=== PATIENT | female | born 1970 | race Caucasian/White ===

== ENCOUNTER 2021-01-26 17:59 | Emergency (ER) | payer OTHER ==
[~2021-01-26] VITALS: Ht 167.6 cm; Wt 86.0 kg
[2021-01-26 18:00] VITALS: BP 150/87
--- NOTE | 2021-01-26 18:35 | PHYS DOC ---
Past History Past Medical History: Depression Past Surgical History: Other Alcohol Use: None Adult General Chief Complaint Chief Complaint: POST-OP PROBLEM HPI HPI Patient is a 50-year-old female who presents with left lower extremity bruising. States that she had laparoscopic knee surgery last week to remove a Soria's cyst. States she noticed some bruising on the inner portion of her lower leg over the last couple of days. Denies any recent travel, other traumas, other surgeries, cigarette smoking, control use, pain. Denies any swelling of the lower extremity. Review of Systems Review of Systems Review of systems otherwise unremarkable except noted in HPI Allergies Allergies Allergies Coded Allergies Type Severity Reaction Last Updated Verified Penicillins Allergy Unknown 01/26/21 Yes Physical Exam Physical Exam Constitutional: Well developed, well nourished, no acute distress, non-toxic appearance. [] Cardiovascular:Heart rate regular rhythm, no murmur [] Lungs & Thorax: Bilateral breath sounds clear to auscultation [] Extremities: No tenderness, no cyanosis, no clubbing, ROM intact, no edema, small contusion/bruise on medial portion of left lower leg. [] Neurologic: Alert and oriented X 3, normal motor function, normal sensory functi on, no focal deficits noted. [] Psychologic: Affect normal, judgement normal, mood normal. [] Current Patient Data Vital Signs Vital Signs Date Time Temp Pulse Resp B/P (MAP) Pulse Ox O2 Delivery O2 Flow Rate FiO2 01/26/21 18:00 99.1 73 16 150/87 (108) 98 Room Air EKG EKG [] Radiology/Procedures Radiology/Procedures [] Heart Score C/O Chest Pain: No Risk Factors: Risk Factors: DM, Current or recent (<one month) smoker, HTN, HLP, family history of CAD, obesity. Risk Scores: Risk Factors: DM, Current or recent (<one month) smoker, HTN, HLP, family hi story of CAD, obesity. Course & Med Decision Making Course & Med Decision Making 50-year-old female presents with left lower extremity bruising Vital signs notable for hypertension. Physical exam noted above. Gave reassurance that sometimes she can have bruising, after laparoscopic knee surgery that is due to postsurgical bleeding down the fascia. Gave strict return precautions to the ED. Advised to call primary care physician first thing in the morning as well as surgeon to set up follow-up visits as needed. Family grateful, verbalized understanding and agreed with plan of discharge. [] Dragon Disclaimer Dragon Disclaimer This electronic medical record was generated, in whole or in part, using a voice recognition dictation system. Departure Departure: Impression: Primary Impression: Contusion Disposition: 01 DC HOME SELF CARE/HOMELESS Condition: GOOD Referrals: CASSIE HAIRSTON MD (PCP) Patient Instructions: Contusion Additional Instructions: Please read all the attached information. Please call your primary care physician and your surgeon first thing in the morning to update on ED visit and set up follow-up visits as necessary. Please come back to the emergency department immediately with new or concerning symptoms as discussed. NICKY CHOI MD Jan 26, 2021 18:35
== END 2021-01-26 18:37 | disposition home or self-care (01) ==
LOC: ER 17:59
DX: S80.12XA Contusion of left lower leg, initial encounter (principal); F32.9 Major depressive disorder, single episode, unspecified; Z88.0 Allergy status to penicillin; X58.XXXA Exposure to other specified factors, initial encounter; Y93.89 Activity, other specified; Y92.89 Other specified places as the place of occurrence of the external cause; Y99.8 Other external cause status
CPT/HCPCS: 99281

== ENCOUNTER 2021-08-02 16:25 | Emergency (ER) | payer OTHER ==
[~2021-08-02] VITALS: Ht 167.6 cm; Wt 86.0 kg
[2021-08-02] MEDS ORDERED: ONDANSETRON PF 4 MG/2 ML VIAL. ONE (16:52)
[2021-08-02] MEDS ORDERED: IV NORMAL SALINE 1,000ML 1,000 ML IV SCH (17:00)
--- NOTE | 2021-08-02 17:02 | PHYS DOC ---
Past History Past Medical History: Depression Past Surgical History: Other Alcohol Use: None Adult General Chief Complaint Chief Complaint: NAUSEA/VOMITING/DIARRHEA HPI HPI Patient is a 50-year-old female presenting for nausea and vomit. Reports her significant other is a known positive individual for COVID-19. She was tested the same day as having 8 days ago, her rapid test was negative but her 's was positive. She has been in self quarantine at home providing supportive care to her self. She reports having URI symptoms that have since resolved but reports ongoing nausea, episodes of nonbloody nonbilious emesis and overall fatigue have remained. She presents today doing to worsening emesis in last 24 hours and inability to keep p.o. intake down without vomit. Nothing known makes better. She has been taking ibuprofen at home for aches and fever. Reports intermittent spikes in fever that have all been responsive to ibuprofen administration, reports highest was 48 hours ago when she measured 102.5. She is unvaccinated herself. She has no other significant comorbid conditions or risk factors Review of Systems Review of Systems Fourteen body systems of review of systems have been reviewed. See HPI for pertinent positives and negative responses, other boykin all other systems are negative, non-pertinent or non-contributory Current Medications Current Medications Current Medications Medications (Trade) Dose Ordered Sig/Deniz Start Time Stop Time Status Last Admin Dose Admin Ondansetron HCl (Zofran) 4 mg STK-MED ONCE 08/02/21 16:52 08/02/21 16:53 DC Sodium Chloride 1,000 ml @ 1,000 mls/hr Q1H 08/02/21 17:00 08/02/21 17:59 UNV Allergies Allergies Allergies Coded Allergies Type Severity Reaction Last Updated Verified Penicillins Allergy Unknown 01/26/21 Yes Physical Exam Physical Exam Constitutional: Well developed, well nourished, no acute distress, non-toxic appearance. Appears tired HENT: Normocephalic, atraumatic, bilateral external ears normal, oropharynx moist, no oral exudates, nose normal. Eyes: PERRLA, EOMI, conjunctiva normal, no discharge. Neck: Normal range of motion, no tenderness, supple, no stridor. No meningeal signs, no nuchal rigidity Cardiovascular: Heart rate regular, sinus rhythm, no murmurs rubs or gallops Lungs & Thorax: Bilateral breath sounds clear to auscultation Abdomen: Bowel sounds normal, soft, no tenderness, no masses, no pulsatile masses. Nonsurgical abdomen, no peritoneal signs Skin: Warm, dry, no erythema, no rash. Back: No tenderness, no CVA tenderness. Extremities: No tenderness, no cyanosis, no clubbing, ROM intact, no edema. Neurologic: Alert and oriented X 3, grossly normal motor & sensory function, no focal deficits noted. Psychologic: Depressed affect and mood Current Patient Data Vital Signs Vital Signs Date Time Temp Pulse Resp B/P (MAP) Pulse Ox O2 Delivery O2 Flow Rate FiO2 08/02/21 16:32 99.2 83 16 162/77 (105) 96 Room Air Lab Results Laboratory Tests Test 08/02/21 16:46 White Blood Count 5.3 x10^3/uL Red Blood Count 4.80 x10^6/uL Hemoglobin 13.8 g/dL Hematocrit 41.1 % Mean Corpuscular Volume 86 fL Mean Corpuscular Hemoglobin 29 pg Mean Corpuscular Hemoglobin Concent 34 g/dL Red Cell Distribution Width 16.9 % Platelet Count 98 x10^3/uL Neutrophils (%) (Auto) 83 % Lymphocytes (%) (Auto) 10 % Monocytes (%) (Auto) 7 % Eosinophils (%) (Auto) 0 % Basophils (%) (Auto) 0 % Neutrophils # (Auto) 4.4 x10^3uL Lymphocytes # (Auto) 0.5 x10^3/uL Monocytes # (Auto) 0.4 x10^3/uL Eosinophils # (Auto) 0.0 x10^3/uL Basophils # (Auto) 0.0 x10^3/uL Sodium Level 139 mmol/L Potassium Level 3.6 mmol/L Chloride Level 103 mmol/L Carbon Dioxide Level 26 mmol/L Anion Gap 10 Blood Urea Nitrogen 9 mg/dL Creatinine 0.8 mg/dL Estimated GFR (Cockcroft-Gault) 76.2 BUN/Creatinine Ratio 11 Glucose Level 92 mg/dL Calcium Level 8.3 mg/dL Total Bilirubin 0.4 mg/dL Aspartate Amino Transf (AST/SGOT) 29 U/L Alanine Aminotransferase (ALT/SGPT) 25 U/L Alkaline Phosphatase 62 U/L Creatine Kinase 64 U/L Troponin I Quantitative < 0.017 ng/mL BC-[id number] Natriuretic Peptide 44 pg/mL Total Protein 7.3 g/dL Albumin 3.3 g/dL Albumin/Globulin Ratio 0.8 Current Medications Medications (Trade) Dose Ordered Sig/Deniz Route PRN Reason Start Time Stop Time Status Last Admin Dose Admin Ondansetron HCl (Zofran) 4 mg STK-MED ONCE .ROUTE 08/02/21 16:52 08/02/21 16:53 DC Sodium Chloride 1,000 ml @ 1,000 mls/hr Q1H IV 08/02/21 17:00 08/02/21 17:59 08/02/21 16:59 EKG EKG EKG ordered and interpreted by myself at 1710 hrs. of sinus rhythm at 86 bpm, unremarkable intervals, no axis deviation, significant artifact but no obvious ischemic findings, no STEMI Radiology/Procedures Radiology/Procedures EXAM: Chest, single view. HISTORY: Shortness of breath. COMPARISON: None. FINDINGS: A frontal view of the chest is obtained. There is right infrahilar opacity due to a symmetrical overlying prevascular and osseous shadows or right infrahilar interstitial infiltrate There is no consolidation, pleural effusion or pneumothorax. There is a healed left rib fracture. The heart is normal in size. IMPRESSION: Right infrahilar opacity due to overlying shadows or lower lobe interstitial infiltrate. There is no consolidated pneumonia. Electronically signed by: Lisa Burciaga MD (08/02/2021 5:39 PM) [facility] Heart Score C/O Chest Pain: No HEART Score for Chest Pain: HEART Score for Chest Pain Response (Comments) Value History Slighlty/Non-Suspicious 0 ECG Normal 0 Age >45 - < 65 1 Risk Factors 1 or 2 Risk Factors 1 Total 2 Risk Factors: Risk Factors: DM, Current or recent (<one month) smoker, HTN, HLP, family history of CAD, obesity. Risk Scores: Risk Factors: DM, Current or recent (<one month) smoker, HTN, HLP, family history of CAD, obesity. Course & Med Decision Making Course & Med Decision Making ABCs unremarkable. I disclosed entirety of ER findings and discussed most likely diagnosis of right lower lobe developing pneumonia in setting of viral syndrome with concern for COVID-19 due to close contact with Covid positive in an unvaccinated patient. Other diagnoses were discussed with patient such as ACS, pulmonary embolism and other potentially emergent diagnoses but all deemed less likely causes of patient's presentation. Plan of care discussed at length with need for close outpatient follow-up to review today's ER visit stressed. Strict return precautions were also discussed at length with good understanding verbalized by patient. Patient voiced understanding and agreement with the plan. Patient knows to come back for repeat evaluation if concerning signs or symptoms present prior to outpatient follow-up. Hemodynamically stable, ambulatory and well-appearing at time of disposition. Dragon Disclaimer Dragon Disclaimer This electronic medical record was generated, in whole or in part, using a voice recognition dictation system. Departure Departure: Impression: Primary Impression: RLL pneumonia Additional Impression: Person under investigation for COVID-19 Disposition: HOME / SELF CARE / HOMELESS Condition: STABLE Referrals: CASSIE HAISRTON MD (PCP) Additional Instructions: As discussed prior to ER departure, your vitals, physical examination and comprehensive ER work-up was nonconcerning for any emergent or surgical issues. Your chest x-ray was concerning for potential right lower lobe pneumonia and so, you are administered an antibiotic and subsequently prescribed this for treatment. Please take this as scheduled to completion. You were also prescribed an antinausea medicine. Please do not take these at the same time. Both medications put you at risk for increased QT prolongation which is increasing the electricity of your heart and can put you at risk for life-threatening heart arrhythmias. It is pertinent you complete your round of antibiotics and then 24 hours after last dose of antibiotic, you can resume use of Zofran medication for nausea as needed. Please continue supportive care practices at home. If any concerning signs or symptoms present prior to outpatient follow-up please do not hesitate to come back for repeat evaluation. It was a pleasure to take care of you and I wish you the best going forward Scripts Ondansetron (ONDANSETRON ODT) 4 Mg Tab.rapdis 1 TAB PO PRN Q6-8HRS for NAUSEA, #16 TAB Prov: JASPER HUFF DO 08/02/21 Azithromycin (AZITHROMYCIN TABLET) 500 Mg Tablet 1 TAB PO DAILY for PNA for 2 Days, #2 TAB 0 Refills Prov: JASPER HUFF DO 08/02/21 Problem Qualifiers JASPER HUFF DO Aug 02, 2021 17:02
[2021-08-02 17:17] LABS: BASO % 0 % (0-3); EOS % 0 % (0-3); HEMATOCRIT 41.1 % (36.0-47.0); HEMOGLOBIN 13.8 g/dL (12.0-15.5); LYMPH # 0.5 x10^3/uL (1.0-4.8); LYMPH % 10 % (24-48); MEAN CORPUSCULAR HEMOGLOBIN 29 pg (25-35); MEAN CORPUSCULAR HGB CONC 34 g/dL (31-37); MEAN CORPUSCULAR VOLUME 86 fL (79-100); MONO # 0.4 x10^3/uL (0.0-1.1); MONO % 7 % (0-9); NEUT # 4.4 x10^3uL (1.8-7.7); NEUT % 83 % (31-73); PLATELET COUNT 98 x10^3/uL (140-400); RED CELL DISTRIBUTION WIDTH 16.9 % (11.5-14.5); WHITE BLOOD COUNT 5.3 x10^3/uL (4.0-11.0)
[2021-08-02 17:31] LABS: CALCIUM 8.3 mg/dL (8.5-10.1); CREATININE 0.8 mg/dL (0.6-1.0); GFR 76.2; POTASSIUM 3.6 mmol/L (3.5-5.1)
--- NOTE | 2021-08-02 17:41 | RAD ---
EXAM: Chest, single view. HISTORY: Shortness of breath. COMPARISON: None. FINDINGS: A frontal view of the chest is obtained. There is right infrahilar opacity due to a symmetr ical overlying prevascular and osseous shadows or right infrahilar interstitial infiltrate There is n o consolidation, pleural effusion or pneumothorax. There is a healed left rib fracture. The heart is normal in size. IMPRESSION: Right infrahilar opacity due to overlying shadows or lower lobe interstitial infiltrate. There is no consolidated pneumonia. Electronically signed by: Lisa Burciaga MD (08/02/2021 5:39 PM) [facility]
[2021-08-02 17:43] LABS: ALBUMIN 3.3 g/dL (3.4-5.0); ALBUMIN/GLOBULIN RATIO 0.8 (1.0-1.7); TOTAL BILIRUBIN 0.4 mg/dL (0.2-1.0); TOTAL PROTEIN 7.3 g/dL (6.4-8.2)
[2021-08-02] MEDS ORDERED: AZIT500T4 PO (17:46)
[2021-08-02] MEDS ORDERED: ONDA4TAB12 PO (17:48)
[2021-08-02] MEDS ORDERED: AZITHROMYCIN 250 MG TABLET. PO ONE (18:00)
[2021-08-02 18:04] VITALS: BP 154/76
--- NOTE | 2021-08-02 22:26 | EKG ---
[address] [address] Test Date: 2021-08-02 Test Time: 17:03:31 Pat Name: KRISH CUNNINGHAM Department: Room: Gender: [employer] Director: ANNALEE : 1970 Requested By: JASPER HUFF Order Number: [id number] Reading MD: Migueliot Farrar MD Measurements Intervals [place] Rate: 86 P: 39 FL: 144 QRS: 22 QRSD: 84 T: -90 QT: 384 QTc: 463 Interpretive Statements SINUS RHYTHM BASELINE ARTIFACT Electronically Signed On 08-05-2021 10:39:59 CDT by Miguelito Farrar MD
== END 2021-08-02 18:05 | disposition home or self-care (01) ==
LOC: ER 16:25
DX: U07.1 COVID-19 (principal); J12.82 Pneumonia due to coronavirus disease 2019
CPT/HCPCS: 71045; 80053; 82550; 83880; 84484; 85025; 93005; 96360; 99285; C9803; J7030; U0003